=== PATIENT | female | born 1980 | race African-American/Black ===

== ENCOUNTER 2018-02-06 20:21 | Emergency (ER) | END 2018-02-06 21:30 | disposition home or self-care (01) ==

== ENCOUNTER 2018-06-14 17:19 | Emergency (ER) | payer BC ==
[~2018-06-14] VITALS: Ht 165.1 cm; Wt 129.6 kg
[~2018-06-14 17:19] MED LIST: ACET500C5 PO
[2018-06-14 17:23] VITALS: BP 136/65; PULSE 111; RESP 19; Ht 165.1 cm; Wt 129.6 kg
[2018-06-14] MEDS ORDERED: ONDANSETRON (ODT) 4 MG TAB ODT STA (20:43)
[2018-06-14] MEDS ORDERED: LIDOCAINE 2% VISC 15 ML CUP PO ONE (21:00)
[2018-06-14] MEDS ORDERED: MED4DP PO (21:17)
[2018-06-14] MEDS ORDERED: D-ME473S2 PO (21:17)
[2018-06-14] MEDS ORDERED: IBUP-1561 PO (21:17)
[2018-06-14] MEDS ORDERED: ONDA4TAB14 PO (21:18)
[2018-06-14] MEDS ORDERED: DEXAMETHASONE 10 MG/ML 1 ML INJ IM ONE (22:00)
--- NOTE | 2018-06-15 03:04 | ERD ---
ER Documentation Chief Complaint Chief Complaint ST X 6 DAYS. HPI This is a 37-year-old female who presents with complaints of a progressively worsening sore throat times 6 days. Patient also reports subjective fevers, as well. She also reports a hoarse voice, nasal congestion, frontal head pressure, and cough. Patient tried to self medicate herself with amoxicillin that she had left over from her previous ear infection. This did not help so she came here for further evaluation. She also reports multiple episodes of nonbilious, nonbloody emesis and nonbloody diarrhea times over the past 2 days. No abdominal pain. No urinary symptoms. No known sick contacts. No other complaints. ROS All systems reviewed and are negative except as per history of present illness. Medications Home Meds Active Scripts Ondansetron (Ondansetron Odt) 4 Mg Tab.rapdis, 4 MG PO Q6H PRN for NAUSEA AND/OR VOMITING, #10 TAB Prov:DANYAIGRIKIANKRISTIANPYUR Eboni PA-C 06/14/18 Dextromethorphan Hb-Promethazine Hcl* (Promethazine DM* Syrup) 473 Ml Syrup, 5 ML PO Q6 PRN for COUGH for 7 Days, ML Prov:DANYAIGRIKIANKRISTIANPYUR N PA-C 06/14/18 Ibuprofen* (Motrin*) 400 Mg Tab, 400 MG PO Q6H PRN for PAIN AND OR ELEVATED TEMP, #30 TAB Prov:DISHIGRIKIAN,ZEPYUR N PA-C 06/14/18 Methylprednisolone* (Medrol* DOSE PACK) 4 Mg/Dose-Pack Tab.ds.pk, 4 MG PO . DIRECTED, #1 PACKET Prov:DANYAIGRIKIAN,KRISTIANPYUR N PA-C 06/14/18 Acetaminophen* (Tylophen*) 500 Mg Capsule, 1 CAP PO Q6H PRN for PAIN AND OR ELEVATED TEMP, #20 CAP Prov:JOY AVALOSC 02/06/18 Allergies Allergies: Coded Allergies: No Known Allergies (Verified Allergy, 11/30/11) PMhx/Soc History of Surgery: Yes (2 c-sections) Anesthesia Reaction: No Hx Neurological Disorder: No Hx Respiratory Disorders: No Hx Cardiac Disorders: No Hx Psychiatric Problems: No Hx Miscellaneous Medical Probl: No Hx Alcohol Use: No Hx Substance Use: No Hx Tobacco Use: Yes Smoking Status: Never smoker Physical Exam Vitals Vital Signs Date Temp Pulse Resp B/P (MAP) Pulse Ox O2 O2 Flow FiO2 Time Delivery Rate 06/14/18 98.5 111 19 136/65 99 17:23 (88) Physical Exam Const: No acute distress Head: Atraumatic Eyes: Normal Conjunctiva ENT: Normal External Ears, Nose and Mouth. + Posterior OP erythema, no tonsillar edema or exudates. Uvula midline. Postnasal drip seen giving down posterior oropharynx. Bilateral TMs nonerythematous, nonbulging. External auditory canals normal. No mastoid tenderness. Neck: Full range of motion. No meningismus. + Cervical lymphade nopathy. Resp: Clear to auscultation bilaterally Cardio: Regular rate and rhythm, no murmurs Skin: No petechiae or rashes Back: No midline or flank tenderness Ext: No cyanosis, or edema Neur: Awake and alert Psych: Normal Mood and Affect Results 24 hrs Current Medications Medications Dose Sig/Mahesh Start Time Status Last (Trade) Ordered Route PRN Stop Time Admin Dose Reason Admin Lidocaine 15 ml ONCE ONCE 06/14/18 DC 06/14/18 (Xylocaine PO 21:00 20:46 (Viscous)) 06/14/18 21:01 Ondansetron 4 mg ONCE STAT 06/14/18 DC 06/14/18 HCl (Zofran ODT 20:43 20:48 Odt) 06/14/18 20:44 10 mg ONCE ONCE 06/14/18 DC 06/14/18 Dexamethasone IM 22:00 21:54 (Decadron) 06/14/18 22:01 Procedures/MDM ED COURSE: The patient was given IM Decadron, viscous lidocaine and Zofran The medication was well tolerated and the patient had market improvement in symptoms. The patient remained stable throughout ED course. MEDICAL DECISION MAKING: Pt is an otherwise healthy patient who presents with with throat pain. She has no evidence of peritonsillar abscess, retropharyngeal abscess, Matthew's angina, or any other concerning process on physical exam. She is afebrile here and vital signs are stable. Hypoxia or respiratory distress. Symptoms are likely viral. Patient does not meet center criteria for strep pharyngitis testing or treatment. Patient does not need any antibiotics at this time. Will treat with Rx Medrol Dosepak, promethazine DM, and ibuprofen. Recommended increasing water intake, throat lozenges, salt water gargles for symptomatic relief. Follow-up with your regular doctor in 2 days, otherwise return here for any new or worsening symptoms. PRESCRIPTIONS: Medrol Dosepak, Zofran, ibuprofen, promethazine DM SPECIALIST FOLLOW UP RECOMMENDED: None Patient has been advised to follow up with primary care in 1-2 days. Blood Pressure Assessment: Patient's blood pressure was elevated (>120/80) but appears stable without evidence of hypertension emergency or urgency. The patient was counseled about the risks of hypertension and urged to pursue ou tpatient monitoring and therapy within a week with their primary care physician. Departure Diagnosis: Primary Impression: URI (upper respiratory infection) URI type: unspecified viral URI Qualified Codes: J06.9 - Acute upper respiratory infection, unspecified Additional Impression: Viral pharyngitis Condition: Stable Patient Instructions: Preventing Common Respiratory Infections Referrals: [facility] YOU HAVE RECEIVED A MEDICAL SCREENING EXAM AND THE RESULTS INDICATE THAT YOU DO NOT HAVE A CONDITION THAT REQUIRES URGENT TREATMENT IN THE EMERGENCY DEPARTMENT. FURTHER EVALUATION AND TREATMENT OF YOUR CONDITION CAN WAIT UNTIL YOU ARE SEEN IN YOUR DOCTORS OFFICE WITHIN THE NEXT 1-2 DAYS. IT IS YOUR RESPONSIBILITY TO MAKE AN APPOINTMENT FOR FOLOW-UP CARE. IF YOU HAVE A PRIMARY DOCTOR --you should call your primary doctor and schedule an appointment IF YOU DO NOT HAVE A PRIMARY DOCTOR YOU CAN CALL OUR PHYSICIAN REFERRAL HOTLINE AT IF YOU CAN NOT AFFORD TO SEE A PHYSICIAN YOU CAN CHOSE FROM THE FOLLOWING [facility] [address] [facility] [address] [facility] [address] [facility] [facility] [address] [facility] [address] [facility]. [facility]. [address] [facility]. [facility] YOU HAVE RECEIVED A MEDICAL SCREENING EXAM AND THE RESULTS INDICATE THAT YOU DO NOT HAVE A CONDITION THAT REQUIRES URGENT TREATMENT IN THE EMERGENCY DEPARTMENT. FURTHER EVALUATION AND TREATMENT OF YOUR CONDITION CAN WAIT UNTIL YOU ARE SEEN IN YOUR DOCTORS OFFICE WITHIN THE NEXT 1-2 DAYS. IT IS YOUR RESPONSIBILITY TO MAKE AN APPOINTMENT FOR FOLOW-UP CARE. IF YOU HAVE A PRIMARY DOCTOR --you should call your primary doctor and schedule and appointment IF YOU DO NOT HAVE A PRIMARY DOCTOR YOU CAN CALL OUR PHYSICIAN REFERRAL HOTLINE AT . IF YOU CAN NOT AFFORD TO SEE A PHYSICIAN YOU CAN CHOSE FROM THE FOLLOWING [facility] INSTITUTIONS: [facility] [address] [place] [address] [facility] [address] [place] [address] [facility] [address] [place] [address] [facility] URGENT CARE/SPECIALTIES Additional Instructions: I recommend rest, drinking lots of fluids, salt water gargles, throat lozenges. Take the medications as prescribed. I also prescribed you and antinausea medication. Recommend a bland diet of bananas, toast, rice for the next 3 days, he can advance as tolerated. See your regular doctor in 2 days, return here for any new or worsening symptoms. MAX RUDD PA-C Jun 15, 2018 03:03
== END 2018-06-14 23:15 | disposition home or self-care (01) ==
LOC: FTE 17:19
DX: J06.9 Acute upper respiratory infection, unspecified (principal); J02.8 Acute pharyngitis due to other specified organisms; B97.89 Other viral agents as the cause of diseases classified elsewhere; Z87.891 Personal history of nicotine dependence
CPT/HCPCS: 96372; 99284; J1100; Z7610